=== PATIENT | female | born 2005 | race Caucasian/White ===

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

== ENCOUNTER 2025-03-13 08:13 | Day surgery (SDC) | payer OTHER, SELFPAY ==
--- NOTE | 2025-03-12 12:05 | ANES.PREOP_ITS ---
General Info Date of Service Date Performed: 03/13/25 Height: 5 ft 8 in Weight: 65.771 kg Body Mass Index (BMI): 22.0 Surgical Procedure: Operation Date: 03/13/25 10:10 Proposed Procedure Side Surgeon p Tonsillectomy & Possible Adenoidectomy Abel Soto MD Meds Allergies and Home Medications Allergies Allergy/AdvReac Type Severity Reaction Status Date / Time No Known Allergies Allergy Verified 03/13/25 08:31 Home Medication ?Medication ?Instructions ?Recorded dextroamphetamine-amphetamine 10 10 mg PO DAILY #30 ta bs 12/26/24 mg tablet (Adderall) lisdexamfetamine 40 mg capsule 40 mg PO QAM #30 caps 0 12/26/24 sertraline 50 mg tablet 50 mg PO DAILY #90 tabs 11/29 12/22 Current Visit Medications: Current Medications Generic Name Dose Route Start Last Admin Trade Name Freq PRN Reason Stop Dose Admin Ringer's Solution 1,000 mls @ 50 mls/hr 03/13/25 06:00 IV 03/13/25 23:59 INFUSION SANDY Tranexamic Acid/Sodium Chloride 1,000 mg in 100 mls @ 600 mls/hr 03/13/25 06:00 IVPB 03/13/25 23:59 TODAY SANDY Cefazolin Sodium/Dextrose 1 gm in 50 mls @ 100 mls/hr 03/13/25 06:00 Ancef Duplex IVPB 03/13/25 23:59 PREOP SANDY Sodium Chloride 0 ml 03/13/25 06:00 Normal Saline Flush 10 Ml Syr IV 03/13/25 23:59 PRN PRN Sodium Chloride 0 ml 03/13/25 06:00 Normal Saline 10 Ml Vial IJ 03/13/25 23:59 DIRECTED PRN Sterile Water 0 ml 03/13/25 06:00 Water,Injection,Sterile 10 Ml Vial IJ 03/13/25 23:59 DIRECTED PRN PFSH Active Problems Active Problems: Problem Status Onset Code Tonsillar hypertrophy Acute J35.1 Tonsil stone Acute J35.8 Primary dysmenorrhea Acute N94.4 Exercise induced bronchospasm Acute J45.990 Enlarged tonsils Acute J35.1 ADHD (attention deficit hyperactivity disorder), inattentive type Acute F90.0 Pharyngitis Acute J02.9 Depression Chronic F32.A Learning difficulty Chronic 10/24/13 F81.9 Anxiety Chronic Medical History Medical History Night sweats Dysmenorrhea in adolescent 03/2022: initiated control patch for better compliance 06/2022: switched to vaginal ring for convenience - kept shifting 04/2023: switch to pill, plans Liletta IUD in May Carpal tunnel syndrome on left Contusion contusion to R mandible - pain and trismus L TMJ COVID-19 (04/04/21) Positive test with symptom of only sore throat 04/05/21 Rectal prolapse (09/16/09) with constipation, negative sweat test Wears glasses Smoker in home at Dad's house Surgical History Surgical History H/O wisdom tooth extraction H/O eye surgery tosis issue fixed, L Tobacco Smoking/Tobacco Use Status: Never Passive smoking exposure: Yes (At dad's house, Dad smokes in basement only) Alcohol Alcohol Intake: never Substance Use Substance use: Never Substance use type: does not use Prental History History 0 Para Hx # Term Pregnancies Multiple births Hx # Pregnancies Ectopic pregnancies AB induced Hx Number of Living Children AB spontaneous Vital Signs and Lab Results Vital Signs Comment Vital Signs Comment:: Pulse Resp BP Pulse Ox 57 L 16 101/67 98 03/13/25 08:14 03/13/25 08:14 03/13/25 08:14 03/13/25 08:14 Imaging and Studies Imaging and Studies Study information below may be from another EMR and interpreted by another provider. Please see original notes in EMR for more complete details. EKG Summary: 01/09/24 Exam: Resting ECG Reason for Exam: chest pain Patient Location: E HR:54 bpm ECG Measurements Heart Rate 54 AXIS OR 195 P 49 QRSd 82 QRS 54 QT 417 T8 QTc 394 Conclusion Sinus bradycardia...rate< 60 I have reviewed and interpreted ECG and agree with software generated interpretation. Anesthesia Assessment and Plan Anesthesia History Personal History: Other Family History: No Family History of Anesthesia Complications Exercise Tolerance Exercise Tolerance: Metabolic Equivalents>4 Pertinent Negatives Pertinent Negatives: No Symptoms of GERD Cardiac & Pulmonary Exam Cardiac Exam: Normal S1/S2 Heart Sounds Pulmonary Exam: Clear Bilateral Breath Sounds Implantable Cardiac Device Does patient have a Pacemaker or an ICD?: No Airway Exam Known Difficult Airway: No Mallampati Class: 1 Mouth Opening: Normal (> 3cm) Thyromental Distance: Greater than 3 cm Neck Range of Motion: Full ROM Neck Circumference: Normal Teeth Condition: Normal Dentition ASA Classification ASA Score: ASA 2 Emergency Case?: No NPO Status NPO Status: NPO Clears >2 hours, Solids >8 hours Status Status: Negative HCG Anesthesia Plan Resuscitation Status: Full Code Anesthesia Technique: General Anesthesia Airway Planned: Endotracheal Tube Monitors Used: Standard Monitors
[2025-03-13] VITALS (11 sets, daily range): BP systolic 101–123; BP diastolic 64–84; PULSE 49–69; RESP 12–16; TEMP 36.4–36.7; O2SAT 98–100; BMI 22.0
--- NOTE | 2025-03-13 06:43 | PDOC.DSDIS_ITS ---
Date of service: 03/13/25 Discharge Plan Disposition Patient Disposition: Home Condition: Good Discharge Details Reason For Visit: Tonsillectomy Attending Provider: Abel Soto Primary Care Provider: Sarah Wilkerson Home Meds and New Rx's Prescriptions: No Action dextroamphetamine-amphetamine [Adderall] 10 mg tablet 10 mg PO DAILY MDD 10 Qty: 30 0RF lisdexamfetamine 40 mg capsule 40 mg PO QAM MDD 40 mg Qty: 30 0RF sertraline 50 mg tablet 50 mg PO DAILY Qty: 90 1RF Discharge Instructions Additional Instructions: My cell phone number is [phone]. Please call with any questions or concerns. If you are unable to reach me and you feel it is an emergency, please proceed to the emergency room or call 911. If you fill the prescription for [place], please also ask for Narcan Stand Alone Forms: Anesthesia Discharge Inst., Sanjay Tracy ([facility]), ENT- T&A Instr. Charles, Otilia Information Referrals: Abel Soto MD [ [facility] STAFF PHYSICIAN, ENT Surgical] Referral Note: 1 month with or if not already scheduled Discharge Orders Discharge Orders: Discharge Order (Routine); Ordered 03/13/25 Ordered By: Abel Soto
[2025-03-13] MEDS: Lactated Ringers 1,000 ML 50 ML IV (08:40)
--- NOTE | 2025-03-13 10:15 | ROE_ITS ---
Operative Note Operative Note PRE-OP DIAGNOSIS: Chronic tonsillitis POST-OP DIAGNOSIS: same PROCEDURE: Tonsillectomy SURGEON: Abel Soto ANESTHESIA TYPE: General LMA/ETT Refer to Anesthesia Record ESTIMATED BLOOD LOSS: 20 PATHOLOGY: other (tonsils) COMPLICATIONS: None Patient was transported to: PACU Patient's condition: stable Indications: Patient with chronic tonsillitis. Options were explained to the patient [facility] management. She elected for the above procedure. Consent was signed prior to procedure. All questions were answered prior to procedure. Risks of narcotics were reviewed. H&P was reviewed. There have been no changes Findings: 3+ tonsils, copious cryptic debris, atrophic adenoids, palate intact to inspection palpation Procedure Description: After obtaining an adequate level of general endotracheal anesthesia the patient was positioned in the supine position and prepped and draped in appropriate fashion. A Jitendra Gray mouthgag was carefully introduced into the oral cavity and opened revealing a soft and hard palate which were examined revealing no evidence of an occult cleft palate. Adenoids were examined revealing no significant adenoid. Attention was then turned to the tonsils. 0.5% Marcaine with 1/100,000 epinephrine was injected in the submucosal planes around the superior, anterior, and posterior edges of the tonsil. A 12 blade was then used to incise mucosa along the superior, anterior, and posterior to the tonsil and then a Rom elevator used to disarticulate the tonsil from the tonsillar fossa superiorly. A Casey blade was used to strip the tonsil free from the tonsillar fossa down to the inferior pole at which point in time a tonsillar snare was used to amputate the tonsil from the tonsillar fossa. Once been accomplished bilaterally, electrocautery suction tip catheter set on 15 W coagulation was used to achieve hemostasis in the tonsil beds. Valsalva failed to induce further bleeding. The Jitendra Gray mouthgag was relaxed and reopened revealing no further bleeding. The Jitendra Gray mouthgag was then relaxed and removed and the patient was then awakened and expanded by anesthesia and taken recovery room in stable condition. I was present throughout the entire case. Date of Procedure: 03/13/25
[2025-03-13] MEDS: ceFAZolin 1 GM/50 ML BAG IVPB (10:34)
[2025-03-13] MEDS: TRANEXAMIC ACID/SOD. CHL. 1,000 MG/100 ML BAG 600 MG IVPB (10:41)
[2025-03-13] MEDS: Bupivacaine 0.5% Pres-Free W/EPI 10 ML VIAL (10:46)
--- NOTE | 2025-03-13 10:47 | TONSIL_PTH ---
PATIENT: Mariola Graham LOC: [facility] U#:[id number] AGE/SX: 19/F ROOM: RE03/13/[address]: Abel Soto MD : 2005 BED: DIS: 03/13/2025 SPEC #: [id number] RECD: 03/13/25 12:43 STATUS: ANNABELLA RE #: [id number] MARY: 03/13/25 10:[address]: Abel Soto DEPT: Surgical Specimen RECD BY: Lissy Lewis Tissues: 1 - TONSIL AGE 17 & OVER 2 - TONSIL AGE 17 & OVER Procedures: GROSS AND MICRO LEVEL 3 Comments: [id number]
[2025-03-13] MEDS: Ibuprofen 100 MG/5 ML CUP 600 MG PO (11:55)
--- NOTE | 2025-03-13 12:29 | W.ANESPOSTOP ---
Postoperative Evaluation Date, Time and Location Date Performed: 03/13/25 Time Performed: 12:29 Patient Location: Day Surgery Unit Vital Signs Most Recent Imported Vital Signs: Most Recent Vital Signs Temp Pulse Resp BP Pulse Ox 36.4 C L 51 L 16 114/84 100 03/13/25 11:44 03/13/25 11:44 03/13/25 11:44 03/13/25 11:44 03/13/25 11:44 Pain Score Most Recent Pain Score: Most Recent Pain Score Pain Level 3 03/13/25 11:44 Assessment Mental Status: Awake (Alert & Oriented to Patient Baseline) Airway and Respiratory Function: Patent airway with normal (patient baseline) respiratory exam Cardiovascular Function: Hemodynamically Stable Hydration Status: Adequately Hydrated Nausea & Vomiting: No Nausea or Vomiting Pain: Pain is tolerable per patient Peripheral Nerve Block: Patient did not receive a nerve block
== END 2025-03-13 12:39 | disposition home or self-care (01) ==
LOC: SUR 08:14
PROVIDERS: PCP Pediatrics; Visit Provider Otolaryngology
PROC: (CPT 42826; principal; 2025-03-13 10:00)
DX: J35.01 Chronic tonsillitis (principal); J35.8 Other chronic diseases of tonsils and adenoids
CPT/HCPCS: 42826; 88304; J0131; J0690; J1100; J2003; J2250; J2405; J2704; J3010